=== PATIENT | male | born 1995 | race Caucasian/White ===

== ENCOUNTER 2016-09-26 13:37 | Inpatient (IN) | payer OTHER ==
[~2016-09-26] VITALS: Ht 175.3 cm; Wt 165.6 kg
[~2016-09-26 13:37] MED LIST: ETOMIDATE 2 MG/ML 20 ML VIAL IV ONE; ROCURONIUM BROMIDE 10 MG/ML 5 ML VIAL IV ONE; VECURONIUM BROMIDE 10 MG VIAL IV ONE
[2016-09-26] MEDS ORDERED: HALOPERIDOL LACTATE 5 MG/ML 1 ML VIAL ONE (13:41)
[2016-09-26] MEDS ORDERED: LORAZEPAM 2 MG/ML 1 ML VIAL ONE ×2 (13:41→15:05)
[2016-09-26] MEDS ORDERED: MIDAZOLAM HCL 5 MG/ML 1 ML VIAL IM STA (13:45)
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
[2016-09-26] MEDS ORDERED: MIDAZOLAM HCL 5 MG/ML 2ML VIAL ONE ×2 (14:02→15:53)
[2016-09-26] MEDS ORDERED: HALOPERIDOL LACTATE 5 MG/ML 1 ML VIAL IM STA (14:13)
[2016-09-26 14:37] LABS: BUN/CREATININE RATIO 10.5 (10-20); CALCIUM 8.4 mg/dl (8.5-10.1); CREATININE 0.99 mg/dl (0.60-1.40)
[2016-09-26] MEDS ORDERED: LORAZEPAM 2 MG/ML 1 ML VIAL IM STA (15:07)
--- NOTE | 2016-09-26 15:40 | DIAGNOSTIC IMAGING REPORT ---
CHEST ONE VIEW PORTABLE CLINICAL HISTORY: Hypoxia, intoxication. Vomiting. COMPARISON STUDY: No previous studies for comparison. FINDINGS: The heart is the upper limits of normal in size. There is no focal pulmonary consolidation. There is no pneumothorax. There are no pleural effusions. There is no failure. Mild increased markings are likely secondary to technical factors given the patient's body habitus.[ IMPRESSION: AP portable study. No active disease in the chest. Electronically signed by: Luke Winslow M.D. 09/26/2016 3:39 PM Dictated Date/Time: 09/26/2016 3:38 PM
[2016-09-26] MEDS ORDERED: MIDAZOLAM HCL 5 MG/ML 1 ML VIAL IV STA ×2 (15:45→17:01)
[2016-09-26] MEDS ORDERED: RAPID SEQUENCE INDUCTION BAG ONE (16:21)
[2016-09-26] MEDS ORDERED: PROPOFOL IV EMULSION 10 MG/ML 20 ML VIAL IV ONE (16:39)
[2016-09-26] MEDS ORDERED: PROPOFOL IV EMULSION 10 MG/ML 20 ML VIAL IV STA (16:40)
[2016-09-26] MEDS ORDERED: PROPOFOL IV EMULSION 10 MG/ML 100 ML VIAL IV PRN (16:45)
--- NOTE | 2016-09-26 16:51 | DIAGNOSTIC IMAGING REPORT ---
CHEST ONE VIEW PORTABLE CLINICAL HISTORY: Respiratory failure. Post intubation film. COMPARISON STUDY: 09/26/2016 FINDINGS: There is been interval placement of an endotracheal tube 5.3 cm above the raquel. Heart is mildly enlarged. There are increased perihilar markings. Is unclear whether these are atelectatic, inflammatory, or secondary to mild central pulmonary vascular congestion. Clinical and radiographic follow-up is recommended. IMPRESSION: Interval placement of an endotracheal tube 5.3 cm above the raquel. Electronically signed by: Luke Winslow M.D. 09/26/2016 4:49 PM Dictated Date/Time: 09/26/2016 4:47 PM
[2016-09-26] MEDS ORDERED: FENTANYL CITRATE INJ 50 MCG/1 ML 2 ML VIAL IV STA (17:01)
--- NOTE | 2016-09-26 17:03 | DIAGNOSTIC IMAGING REPORT ---
CT HEAD WITHOUT CONTRAST (CT) CLINICAL HISTORY: Head pain. Head and facial trauma. Intoxication. COMPARISON STUDY: No previous studies for comparison. TECHNIQUE: Axial CT of the brain is performed from the vertex to the skull base. IV contrast was not administered for this examination. CT DOSE: 1333.49 mGy.cm FINDINGS: No intra or extra-axial mass lesions are visualized. There is no CT evidence of acute cortical infarction. There is no evidence of midline shift. There is no acute hemorrhage. No calvarial fractures are visualized. The patient is intubated There is no evidence of pathologic ventricular dilatation. There is no evidence of acute sinusitis IMPRESSION: No acute intracranial findings. Electronically signed by: Luke Winslow M.D. 09/26/2016 5:02 PM Dictated Date/Time: 09/26/2016 5:01 PM
--- NOTE | 2016-09-26 17:06 | DIAGNOSTIC IMAGING REPORT ---
CT FACIAL BONES-MXILLOFAC WITHOUT CT DOSE: CLINICAL HISTORY: Facial pain status post trauma COMPARISON STUDY: No previous studies for comparison. TECHNIQUE: Helical images were acquired in the transverse plane. The study was reviewed and analyzed on the independent 3-D workstation. The pterygoid plates appear intact. The zygomatic arches appear intact. The globes appear intact. There is no evidence of orbital emphysema. The orbital english and floor appear intact. The mandibular condyles appear intact. The patient is intubated. IMPRESSION: No facial fractures identified. Electronically signed by: Luke Winslow M.D. 09/26/2016 5:05 PM Dictated Date/Time: 09/26/2016 5:02 PM
[2016-09-26 17:11] LABS: HEMATOCRIT 41.5 % (42-52); MEAN CELL VOLUME 86.3 fL (80-100); MEAN CORPUSCULAR HEMOGLOBIN 30.4 pg (25-34); MEAN CORPUSCULAR HGB CONC 35.2 g/dl (32-36); MEAN PLATELET VOLUME 9.9 fL (7.4-10.4); PLATELET COUNT 300 K/uL (130-400); RED BLOOD COUNT 4.81 M/uL (4.7-6.1); WHITE BLOOD COUNT 6.81 K/uL (4.8-10.8)
[2016-09-26] MEDS ORDERED: ALUMINUM/MAGNESIUM/SIMETH (MAALOX MAX) 30 ML UDC PO PRN (17:45)
[2016-09-26] MEDS ORDERED: MAGNESIUM HYDROXIDE SUSP 30 ML UDC PO PRN (17:45)
[2016-09-26] MEDS ORDERED: ONDANSETRON INJ 2 MG/ML 2 ML VIAL IV PRN (17:45)
--- NOTE | 2016-09-26 17:47 | History and Physical ---
History & Physical Date & Time of Service: Sep 26, 2016 at 17:47 Chief Complaint: Alcohol Overdose Primary Care Physician: Social History Smoking Status: Unknown if Ever Smoked Occupational Status: student Home Medications Unable to Obtain Active Prescriptions or Reported Meds Physical Exam Vital Signs Date Time Temp Pulse Resp B/P Pulse Ox O2 Delivery O2 Flow Rate FiO2 09/26/16 16:55 50 09/26/16 16:35 97 09/26/16 16:35 96 Mechanical Ventilator 09/26/16 14:59 90 14 137/58 95 09/26/16 14:45 151/56 09/26/16 14:37 90 14 95 09/26/16 14:35 83 Room Air 09/26/16 14:35 20 91 Nasal Cannula 6.0 09/26/16 14:07 90 12 91 09/26/16 13:57 141/86 09/26/16 13:56 98 18 141/86 92 Room Air 09/26/16 13:55 97 Diagnostics Laboratory Results Results Past 24 Hours Test 09/26/16 14:08 09/26/16 15:45 09/26/16 17:45 Range/Units Sodium Level 142 136-145 mmol/L Potassium Level 3.0 3.5-5.1 mmol/L Chloride Level 104 98-107 mmol/L Carbon Dioxide Level 20 21-32 mmol/L Anion Gap 18.0 3-11 mmol/L Blood Urea Nitrogen 10 7-18 mg/dl Creatinine 0.99 0.60-1.40 mg/dl Est Creatinine Clear Calc Drug Dose 200.4 ml/min Estimated GFR () 126.5 Estimated GFR (Non- 109.2 BUN/Creatinine Ratio 10.5 10-20 Random Glucose 164 70-99 mg/dl Calcium Level 8.4 8.5-10.1 mg/dl Ethyl Alcohol mg/dL 272.0 0-3 mg/dl White Blood Count 6.81 4.8-10.8 K/uL Red Blood Count 4.81 4.7-6.1 M/uL Hemoglobin 14.6 14.0-18.0 g/dL Hematocrit 41.5 42-52 % Mean Corpuscular Volume 86.3 80-100 fL Mean Corpuscular Hemoglobin 30.4 25-34 pg Mean Corpuscular Hemoglobin Concent 35.2 32-36 g/dl RDW Standard Deviation 41.5 36.4-46.3 fL RDW Coefficient of Variation 13.2 11.5-14.5 % Platelet Count 300 130-400 K/uL Mean Platelet Volume 9.9 7.4-10.4 fL Total Creatine Kinase 1936 39-308 U/L Impression Assessment and Plan admit #[id number] VTE Prophylaxis VTE Risk Assessment Done? Y/N: Yes Risk Level: Moderate
[2016-09-26] MEDS ORDERED: SODIUM CHLORIDE 0.9% 1000ML 1,000 ML IV SCH (18:15)
[2016-09-26] MEDS ORDERED: SODIUM CHLOR 0.45% + 20MEQ KCL 1,000 ML IV SCH (18:15)
[2016-09-26] MEDS ORDERED: MIDAZOLAM HCL 1 MG/ML 2ML VIAL IV PRN (18:30)
[2016-09-26] MEDS ORDERED: HALOPERIDOL LACTATE 5 MG/ML 1 ML VIAL IV PRN (18:30)
--- NOTE | 2016-09-26 18:34 | HISTORY & PHYSICAL EXAMINATION ---
DATE OF ADMISSION: 09/26/2016 ADMISSION HISTORY AND PHYSICAL CHIEF COMPLAINT: Intubated. HISTORY OF PRESENT ILLNESS: History is completely unobtainable from the patient. There are no old or outside records available for review. There are no friends, witnesses or family and the patient is intubated and sedated by the time of my arrival. So the history is only obtainable via the ER and even then it was extremely limited because of the degree of the patient's intoxication. He apparently was drinking, was punching himself in the face was vomiting, apparently was combative with police and came to the ER, they were trying to evaluate and assess and he was very combative and there was concern on facial trauma. He was given a degree of sedation to be able to evaluate further with CAT scan, the facial trauma. He was combative, awake and screaming and then briefly was unresponsive and hypoxic, then he was awake and apparently agitated again and eventually between his degree of agitation and waxing and waning mental status, the decision was made to intubate to protect his airway. We have been asked to admit and the case has been discussed with Dr. Hoskins in the ICU. REVIEW OF SYSTEMS AND HISTORY OF PRESENT ILLNESS: From the patient is unobtainable and reportedly police apparently confiscated some Xanax that was found on him, again told to me by the ER physician. PAST MEDICAL HISTORY: Uncertain. MEDICATIONS: Uncertain. PAST SURGICAL HISTORY: Uncertain. FAMILY HISTORY: Uncertain. SOCIAL HISTORY: Obviously used alcohol today. He is apparently a [employer] student. ALLERGIES: Uncertain. PHYSICAL EXAMINATION: VITAL SIGNS: His initial vitals showed a pulse of 97, respiratory rate 18, blood pressure 141/86, 92% on room air. GENERAL: He is sedated and intubated, but in no acute distress at this point in time. HEENT: Normocephalic. He does have a bloody nose. ET tube appears to be in place without any breakdown. There is no other obvious facial trauma. NECK: Appears intact. CARDIOVASCULAR: Regular. Somewhat distant. No rubs, murmurs, or gallops. LUNGS: Clear, distant. No rales, rhonchi, or wheezes. No accessory muscle use. ABDOMEN: Soft, nondistended, nontender. No notable guarding, rebound or rigidity, masses or organomegaly. EXTREMITIES: Without cyanosis, clubbing or edema. No calf tenderness. SKIN: Shows no rashes, no pallor or icterus, no other areas of breakdown, bruising or scrapes. NEUROLOGIC: Full neuro exam obviously is impossible at this time given is intubated and sedated state, but he shows no focal deficits or asymmetry at rest. MENTAL STATE: He is sedated this is not able to be assessed. MUSCULOSKELETAL: Because of his size, intubation and positioning, full exam is difficult, but no obvious lesions are noted. LABORATORIES AND DIAGNOSTICS: CBC shows a white count of 6.81, hemoglobin 14.6, platelets 300. Basic metabolic panel with sodium 142, potassium 3, chloride 100, CO2 20, BUN 10, creatinine 0.99. Calcium 8.4, glucose 164. CK total of 1936, alcohol of 272. His initial chest x-ray showed heart upper limits and normal in size. No consolidation, no pneumothorax, no pleural effusion, no failure; mild increase in lung markings likely secondary to technical factors given patient's body habitus. A follow up chest x-ray post-intubation showing increased perihilar markings, atelectasis inflammation or mild central pulmonary congestion was at the conclusion; this was reviewed by me it did seem consistent with above. Head CT showed no acute findings and maxillofacial CT showed no facial fractures. ASSESSMENT AND PLAN: 1. Airway compromise. He has now been intubated. He is sedated. We will be admitting him to the ICU. Hopefully, quickly he will be able to be extubated as his intoxication wears off. 2. Intoxication, his blood alcohol is 272, which certainly could be high enough to explain some of his findings, but it is also not overwhelmingly high and given this combined with the fact that he had Xanax found on his person, concerns for an underlying potential polysubstance overdose. Will check an EKG, a urine drug screen and acetaminophen level to round out the picture and then follow up on the results accordingly. 3. Questionable pulmonary edema. I suspect this is probably vasodilation from the medications he was given, will simply follow. Obviously, if it persists, we will need to evaluate further from a cardiac standpoint. 4. Hypokalemia, replete, this probably down from alcohol. 5. Mild metabolic acidosis. Follow basic metabolic panel in the morning. 6. Hypocalcemia. Check a vitamin D. 7. Elevated CK total. This is probably from his size, muscle mass, and just general recent mobility with agitation. Will follow up a level in several hours to ensure it is not rising, it is some sort of surprise rhabdomyolysis that it would not expect. 8. Deep venous thrombosis prophylaxis. Lovenox. Please note due to HIPPA, the patient being an adult and having no clear cut family contacts, I was unable to ethically or legally reach out to anyone at this point in time. MTDD
[2016-09-26 18:46] LABS: MAGNESIUM 2.4 mg/dl (1.8-2.4); PHOSPHORUS 3.4 mg/dl (2.5-4.9)
[2016-09-26] MEDS ORDERED: POTASSIUM CHLORIDE 20 MEQ/15 ML UDC PO SCH (18:50)
[2016-09-26] MEDS ORDERED: POTASSIUM CHLR 10 MEQ / WTR 10 MEQ in PREMIXED WATER 100 ML IV SCH (19:00)
[2016-09-26] MEDS: PROPOFOL IV EMULSION 10 MG/ML 100 ML VIAL IV PRN ×3 (19:10→23:21)
[2016-09-26 19:28] LABS: ISTAT ALLEN TEST Pass; ISTAT ARTERIAL BLOOD GAS HCO3 21 meq/L (19-24); ISTAT ARTERIAL BLOOD GAS PCO2 49 mmHg (35-46); ISTAT ARTERIAL BLOOD GAS PO2 153 mmHg (80-95); ISTAT ARTERIAL BLOOD GAS pH 7.24 (7.35-7.45); ISTAT CARBON DIOXIDE 22 mEq/l (24-31); ISTAT DELIVERY SYSTEM Ventilator; ISTAT FIO2 50 %; ISTAT PEEP 5; ISTAT RATE 16; ISTAT SITE R Radial; VE 10.8; Vt 600
[2016-09-26 19:35] LABS: BENZODIAZEPINE, URINE POS (NEG); COCAINE,URINE POS (NEG); PHENCYCLIDINE, URINE NEG (NEG)
--- NOTE | 2016-09-26 19:47 | CRITICAL CARE CONSULTATION ---
DATE OF CONSULTATION: 09/26/2016 CHIEF COMPLAINT: Alcohol overdose. HISTORY OF PRESENT ILLNESS: Mr. Patterson is a 21-year-old man, who presented to the Emergency Department either via police or ambulance presumably secondary to alcohol intoxication. Per the Emergency Department notes, the police told them he punched himself in the face prior to arrival and had been vomiting. In the Emergency Department, he was combative and received 10 mg of IM Haldol and 2 mg of IM Ativan prior to getting 5 mg of IM Versed. He was still combative and received Haldol 10 mg IM and then another 2 mg IM. He was put into four-point restraints and started to become hypoxemic on room air. He also received 5 mg of IV Versed and eventually required intubation, more Ativan, propofol and fentanyl. At some point during his stay in the Emergency Department, he had a head CT and a maxillofacial CT which showed no fractures or acute process. He is now admitted to the intensive care unit for further care. History is severely limited as there are no family members or friends with him. I do not find any old records on him in the computer. PAST MEDICAL HISTORY: Unknown. PAST SURGICAL HISTORY: Unknown. ALLERGIES: Unknown. OUTPATIENT MEDICATIONS: Unknown. SOCIAL HISTORY: He drinks alcohol. Otherwise unknown. FAMILY HISTORY: Unknown. REVIEW OF SYSTEMS: Not obtainable. PHYSICAL EXAMINATION: GENERAL: This is an obese young man, who weighs 167 kilograms and who is sedated on propofol. VITAL SIGNS: Temperature 36.9, heart rate 87, respiratory rate 16, blood pressure 160-180/70s, oxygen saturation 100%, ventilator settings assist control, tidal volume 600, rate of 16, FiO2 50% and PEEP 5. HEENT: Pupils are equally round and reactive to light. The conjunctivae are injected bilaterally. Oral examination is deferred due to the endotracheal tube being in place. NECK Large. No obvious adenopathy. Trachea midline. LUNGS: Clear to auscultation with very decreased breath sounds in the left base. No rhonchi or wheezes. No rales. HEART: Regular rate and rhythm, distant. ABDOMEN: Obese, soft, nondistended, hypoactive bowel sounds. EXTREMITIES: Warm. No edema. Radial and dorsalis pedis pulses 2+. He has calluses on his feet. NEUROLOGIC: He is unresponsive to sternal rub. LABORATORY DATA: Sodium 142, potassium 3, chloride 104, CO2 20, BUN 10, creatinine 0.99, blood sugar 164, calcium 8.4, total CPK 1936, phosphorus 3.4, magnesium 2.4, hydroxyvitamin D level 6.5, white blood cell count 6.81, hemoglobin 14.6, hematocrit 41.5, platelets 300, acetaminophen level less than 2 and alcohol level 272. Urine tox screen is pending. Portable chest x-ray status post intubation was reviewed and shows the endotracheal tube to be approximately 5 cm above the raquel. No acute infiltrate. CT head and face reports were reviewed; no acute process. IMPRESSION: 1. Acute alcohol intoxication. 2. Agitated delirium secondary to #1. 3. Hypokalemia. 4. Vitamin D deficiency. 5. Morbid obesity with a BMI of 44.9. 6. Mildly elevated CPK. 7. Hypertension PLAN: 1. Sedate and maintain on the ventilator with aggressive hydration overnight until he is no longer intoxicated. 2. Replete potassium. I have ordered potassium liquid in lieu of IV runs. Recheck potassium level later tonight. 3. Follow the CPK. 4. A High catheter and NG tube have been placed. 5. Sedate with propofol, give p.r.n. Ativan and fentanyl if needed. If he becomes extremely agitated, he has some Versed if needed. 6. Check an EKG to rule out prolonged QTc. Consider Haldol if appropriate, based on his QTc. 7. There is reportedly no contact information for this patient other than a telephone number, but who that telephone number belongs to is unknown. It is unclear to me where his telephone number even came from. Hopefully, someone from [facility] can help us find family. 8. Provide DVT prophylaxis with Lovenox. 9. Follow up ABG and adjust the ventilator accordingly. Critical care time; 60 minutes. CASH
[2016-09-26] MEDS: SODIUM CHLORIDE 0.9% 1000ML 1,000 ML IV SCH (19:48)
[2016-09-26 20:26] LABS: PROTHROMBIN TIME (PATIENT) 10.8 SECONDS (9.0-12.0)
[2016-09-26 20:38] VITALS: BP 119/63; PULSE 76; TEMP 36.5; O2SAT 100; Ht 175.3 cm; Wt 165.6 kg
[2016-09-26 21:00] VITALS: BP 158/76; PULSE 78; O2SAT 100
[2016-09-26 21:10] VITALS: BP 128/62; PULSE 80; O2SAT 100
[2016-09-26] MEDS: CHLORHEXIDINE GLUCONATE 0.12% 480 ML MT SCH (21:10)
[2016-09-26] MEDS: FENTANYL CITRATE INJ 50 MCG/1 ML 2 ML VIAL IV PRN (21:10)
[2016-09-26] MEDS ORDERED: ENOXAPARIN 40 MG/0.4 ML SYR SQ SCH (21:32)
[2016-09-26 22:00] VITALS: BP 125/57; PULSE 81; O2SAT 100
[2016-09-26 23:01] VITALS: BP 144/85; PULSE 84; O2SAT 100
[2016-09-26] MEDS: PATIENT'S ALLERGY INFO NEEDS ENTERED SCH (23:21)
[2016-09-26 23:23] LABS: BLOOD UREA NITROGEN 8 mg/dl (7-18); BUN/CREATININE RATIO 11.7 (10-20); CALCIUM 7.6 mg/dl (8.5-10.1); CARBON DIOXIDE 23 mmol/L (21-32); CHLORIDE 110 mmol/L (98-107); CREATININE 0.65 mg/dl (0.60-1.40); GLUCOSE 91 mg/dl (70-99); POTASSIUM 3.8 mmol/L (3.5-5.1); SODIUM 143 mmol/L (136-145)
[2016-09-27] VITALS (13 sets, daily range): BP systolic 120–168; BP diastolic 62–95; PULSE 94–123; TEMP 36.9–37.9; O2SAT 95–100
[2016-09-27] MEDS: FENTANYL CITRATE INJ 50 MCG/1 ML 2 ML VIAL IV PRN ×3 (00:32→05:09)
[2016-09-27] MEDS: PROPOFOL IV EMULSION 10 MG/ML 100 ML VIAL IV PRN ×5 (01:25→09:07)
[2016-09-27] MEDS: LORAZEPAM 2 MG/ML 1 ML VIAL IV PRN ×3 (01:50→07:12)
[2016-09-27] MEDS: SODIUM CHLORIDE 0.9% 1000ML 1,000 ML IV SCH ×2 (02:38→07:12)
[2016-09-27 06:37] LABS: BUN/CREATININE RATIO 9.3 (10-20); MAGNESIUM 1.8 mg/dl (1.8-2.4); POTASSIUM 3.6 mmol/L (3.5-5.1)
[2016-09-27 06:50] LABS: PHOSPHORUS 3.5 mg/dl (2.5-4.9)
[2016-09-27] MEDS: CHLORHEXIDINE GLUCONATE 0.12% 480 ML MT SCH (07:56)
[2016-09-27] MEDS: PATIENT'S ALLERGY INFO NEEDS ENTERED SCH (07:56)
--- NOTE | 2016-09-27 07:56 | DIAGNOSTIC IMAGING REPORT ---
CHEST ONE VIEW PORTABLE HISTORY: check ETT placement, resp failure COMPARISON: Chest 09/26/2016. FINDINGS: The endotracheal tube terminates 4.3 cm from the raquel. Nasogastric tube terminates below the diaphragm. The tip is not included on this study. Scattered bilateral airspace opacities have significantly improved. The heart is top normal in size. No pleural effusions. No pneumothorax. Mild central pulmonary vascular congestion without overt edema. IMPRESSION: 1. Satisfactory support line placement. 2. Interval improvement in the bilateral airspace opacities. Electronically signed by: Benigno Ayala M.D. 09/27/2016 7:55 AM Dictated Date/Time: 09/27/2016 7:53 AM
[2016-09-27] MEDS ORDERED: CHOLECALCIFEROL 1000 INTER.UNIT TAB PO SCH (09:00)
[2016-09-27] MEDS: POTASSIUM CHLR 10 MEQ / WTR 10 MEQ in PREMIXED WATER 100 ML IV SCH ×4 (09:02→12:23)
[2016-09-27] MEDS ORDERED: SODIUM CHLORIDE 0.9% 1000ML 1,000 ML IV SCH (10:00)
[2016-09-27] MEDS ORDERED: LORAZEPAM 2 MG/ML 1 ML VIAL IV PRN (10:15)
[2016-09-27] MEDS ORDERED: PANTOprazole INJ 40 MG in SYRINGE 0 ML IV SCH (11:00)
[2016-09-27] MEDS ORDERED: SODIUM CHLORIDE 0.45% 1000ML 1,000 ML IV SCH (11:45)
[2016-09-27] MEDS ORDERED: ALBUTEROL 0.083% NEBU SOLN 3 ML VIAL INH SCH (12:00)
[2016-09-27] MEDS ORDERED: ALBUTEROL 0.083% NEBU SOLN 3 ML VIAL INH PRN (12:00)
--- NOTE | 2016-09-27 12:01 | CRITICAL CARE PROGRESS NOTE ---
DATE: 09/27/2016 SUBJECTIVE: This is a 21-year-old young man who was admitted to the intensive care unit last evening after presenting to the Emergency Department with alcohol intoxication and combative behavior. He required multiple bolus doses of sedatives and eventually was intubated in order to obtain CT of the head and face as well as to protect staff and the patient from harm. There were no acute events overnight. His urine toxicology screen resulted positive for cocaine and marijuana. I saw him this morning after his propofol had been stopped. He was on CPAP 5/5 and under my direction and in my presence, he was extubated. He is demanding and impatient. He denies any pain and was very irritated with having a High catheter. He tells me that he has a history of asthma and uses his rescue inhaler daily. He also may have sleep apnea, but he does not use a CPAP machine and cannot tell me if he has had a sleep study. HE IS ALLERGIC TO ACETAMINOPHEN, which he says causes him to "swell up." His care was discussed with his nurse, Ngozi. PHYSICAL EXAMINATION: VITAL SIGNS: Maximum temperature 37.7, heart rate 84-111, respiratory rate 22-27, blood pressure 127-158/60s-90s, and oxygen saturation 98% on 2 liters nasal cannula. NEUROLOGIC: He is awake, alert, and moves all 4 extremities to command. LUNGS: Distant and decreased breath sounds throughout. NECK: No stridor. HEART: Distant, tachycardic and regular. ABDOMEN: Morbidly obese, firm, and nontender. EXTREMITIES: Large, warm. Adequate capillary refill. LABORATORY DATA: Sodium 143, potassium 3.6, chloride 110, CO2 of 26, BUN 9, and creatinine 1. CPK 1794, magnesium 1.8, and phosphorus 3.5. CBC pending. Portable chest x-ray from this morning was reviewed and shows improvement in the bibasilar atelectasis. MEDICATIONS: Maalox, albuterol, vitamin D, Lovenox, fentanyl, Haldol, Ativan, milk of magnesia, Versed, Protonix, potassium, and normal saline at 150 mL per hour. IMPRESSION: 1. Acute alcohol intoxication. 2. Delirium with agitation secondary to #1, resolved. 3. History of asthma. 4. Vitamin D deficiency. 5. Morbid obesity. 6. Hypokalemia. 7. Mild rhabdomyolysis. 8. Urine toxicology screen positive for marijuana and cocaine. 9. Alcohol and drug abuse. 10. Hypertension 11. History of ADHD PLAN: 1. Change IV fluids to 1/2NS 100ml/hr and check CPK later today. 2. Replete electrolytes. 3. Advance diet. 4. I will try to find out how much alcohol he actually drinks and if he is at risk for alcohol withdrawal. 5. I added Protonix to his medications secondary to an NG output of 500 mL last evening. This can be discontinued now if he is extubated. 6. Continue DVT prophylaxis with Lovenox. 7. Labetalol IV for hypertension. Consider scheduled lopressor 8. Change fluids to half normal saline. 9. Scheduled albuterol nebulizers. Critical care time 40 minutes. CASH
[2016-09-27] MEDS ORDERED: LABETALOL HCL IV 5 MG/ML 20ML IV STA (12:12)
[2016-09-27 12:14] LABS: ISTAT ALLEN TEST Pass; ISTAT ARTERIAL BLOOD GAS HCO3 22 meq/L (19-24); ISTAT ARTERIAL BLOOD GAS PCO2 36 mmHg (35-46); ISTAT ARTERIAL BLOOD GAS PO2 63 mmHg (80-95); ISTAT CARBON DIOXIDE 23 mEq/l (24-31); ISTAT DELIVERY SYSTEM Room Air; ISTAT SITE R Radial
[2016-09-27] MEDS ORDERED: METHYLPREDNISOLONE IV 40 MG in SYRINGE 0 ML IV SCH (13:00)
[2016-09-27] MEDS ORDERED: METHYLPREDNISOLONE IV 40 MG in SYRINGE 0 ML IV ONE (13:00)
[2016-09-27] MEDS ORDERED: ALBUT/IPRATROP 3MG/0.5MG NEB 3 ML VIAL INH SCH (15:00)
--- NOTE | 2016-09-27 15:18 | Discharge Instructions ---
Discharge Instructions Admission Reason for Admission: Alcohol Intoxication, Combative Behavior Discharge Discharge Diagnosis / Problem: Anxiety, Hypertension, Tachycardia, recent alcohol intoxication Discharge Goals Goal(s): Decrease discomfort, Improve function Activity Recommendations Activity Limitations: resume your previous activity Lifting Limitations: none Exercise/Sports Limitations: as tolerated May Resume Sexual Activity: when tolerated Shower/Bathe: no limitations Driving or Machine Use: do not drive if you are drinking alcohol or using Xanax or cocaine . Instructions / Follow-Up Instructions / Follow-Up You have been informed that it is my medical advise that you stay in the hospital for further care over night. You have elected to leave against medical advise. You understand that you could get worse and even potentially without medical intervention. Current Hospital Diet Patient's current hospital diet: Regular Diet Discharge Diet Recommended Diet: Regular Diet Pending Studies Studies pending at discharge: no Medical Emergencies . Who to Call and When: Medical Emergencies: If at any time you feel your situation is an emergency, please call 911 immediately. . Non-Emergent Contact Non-Emergency issues call your: Primary Care Provider ([facility]) . . "Provider Documentation" section prepared by Pete Garcia. VTE Core Measure Inpt VTE Proph given/why not?: Enoxaparin (Lovenox) [place] Drug Monitoring Program Search Results: no issues identified
--- NOTE | 2016-09-27 15:57 | Discharge Summary ---
Discharge Summary Date of Service Sep 27, 2016. Discharge Summary Admission Date: Sep 26, 2016 at 17:39 Discharge Date: Sep 27, 2016 Discharge Disposition: Home Principal Diagnosis: Acute Alcohol Intoxication Problems/Secondary Diagnoses: Acute Delirium Medication Reconciliation Medication Profile: Unable to Obtain Active Prescriptions or Reported Meds Discharge Exam Review of Systems: Constitutional: No chills, No fever Respiratory: No cough, No shortness of breath, No sputum Cardiovascular: No chest pain Abdomen: No diarrhea, No nausea, No pain, No vomiting Neurologic: No memory loss, No weakness Endocrine: No fatigue Physical Exam: General Appearance: no apparent distress, + obese Eyes: normal inspection, PERRL, EOMI, sclerae normal Neck: supple Respiratory/Chest: chest non-tender, no respiratory distress, + decreased breath sounds Cardiovascular: regular rate, rhythm, no edema, no JVD, no murmur Abdomen / GI: normal bowel sounds, non tender, soft Neurologic/Psychiatric: alert, normal mood/affect, oriented x 3 Hospital Course Patient is a 21 year old male that presented to the ED yesterday brought in by police after being found intoxicated, punching himself in the face, combative, and vomiting. A bottle of Xanax was found on his person and confiscated by police. In the ED the patient was combative and had a blood alcohol level of 272. Due to his aggressive and combative behavior the patient was given Haldol 10mg, Ativan 2mg, and Versed IM 5mg and subsequently intubated. The patient has a head CT due to facial trauma and that showed no acute fractures. The patient was taken to the ED and was sedated with a vent whiled on Versed, Ativan, Propofol, and Fentanyl. He received IV fluids with KCl due to dehydration and hypokalemia. The patient also had an elevated CPK possibly 2/2 to his large stature. The patient had a molina and NG tube placed as well. No acute events occurred overnight. Tox screen came back positive for cocaine and marijuana. Patient was extubated successfully this morning and afterwards was saturating well on room air. Patient was very demanding and was upset about having a Molina Catheter stating he has "had one before and didn't do well with it". After further questioning the patient states he has had an admission before for intoxication as a senior in high school, but did not provide further details. He denies taking Ativan or Cocaine last night, but says he had "half a handle" of vodka with 8 beers as well as marijuana. We were continuing with maintenance fluids and supportive care when the patient demanded on leaving AMA. The patient is determined to be competent at this time and will be discharged AMA Total Time Spent: Greater than 30 minutes This includes examination of the patient, discharge planning, medication reconciliation, and communication with other providers. Discharge Instructions Please refer to the electronic Patient Visit Report (Discharge Instructions) for additional information.
[2016-10-01 00:30] LABS: COCAINE, URINE 6110 NG/ML (CUTOFF=100); HYDROXYETHYLFLURAZEPAM CONF NEGATIVE NG/ML (CUTOFF=50); HYDROXYMIDAZOLAM 1970 NG/ML (CUTOFF=50); HYDROXYTRIAZOLAM CONF NEGATIVE NG/ML (CUTOFF=50); TEMAZEPAM CONF NEGATIVE NG/ML (CUTOFF=50)
== END 2016-09-27 15:30 | disposition left against medical advice (07) | DRG 894 ==
LOC: ENRESERVDT → ENRESERVTM → C.EDA 13:39 → C.MSICU 17:39
PROVIDERS: ADMIT Family Medicine; ATTEND Internal Medicine
PROC: 0BH17EZ Insertion of Endotracheal Airway into Trachea, Via Natural or Artificial Opening (ICD-10-PCS; principal; 2016-09-26)
PROC: 5A1935Z Respiratory Ventilation, Less than 24 Consecutive Hours (ICD-10-PCS; principal; 2016-09-26)
DX: F10.121 Alcohol abuse with intoxication delirium (principal); E87.2 Acidosis; Z68.41 Body mass index [BMI] 40.0-44.9, adult; M62.82 Rhabdomyolysis; Y90.8 Blood alcohol level of 240 mg/100 ml or more; F14.121 Cocaine abuse with intoxication with delirium; F13.121 Sedative, hypnotic or anxiolytic abuse with intoxication delirium; J98.8 Other specified respiratory disorders; J70.2 Acute drug-induced interstitial lung disorders; T50.905A Adverse effect of unspecified drugs, medicaments and biological substances, initial encounter; Y92.239 Unspecified place in hospital as the place of occurrence of the external cause; R04.0 Epistaxis; S09.93XA Unspecified injury of face, initial encounter; X83.8XXA Intentional self-harm by other specified means, initial encounter; R45.6 Violent behavior; R09.02 Hypoxemia; E86.0 Dehydration; F12.90 Cannabis use, unspecified, uncomplicated; R11.11 Vomiting without nausea; E83.51 Hypocalcemia; E87.6 Hypokalemia; R06.82 Tachypnea, not elsewhere classified; R00.0 Tachycardia, unspecified; F41.9 Anxiety disorder, unspecified; I10 Essential (primary) hypertension; E55.9 Vitamin D deficiency, unspecified; J45.909 Unspecified asthma, uncomplicated; E66.01 Morbid (severe) obesity due to excess calories; Z53.21 Procedure and treatment not carried out due to patient leaving prior to being seen by health care provider; Z78.1 Physical restraint status

== ENCOUNTER 2016-11-30 04:59 | Emergency (ER) | payer OTHER ==
[~2016-11-30] VITALS: Ht 193 cm; Wt 157.0 kg
[2016-11-30 05:04] VITALS: TEMP 36.7; Ht 193 cm; Wt 157.0 kg
[2016-11-30] MEDS ORDERED: IBUPROFEN 600 MG TAB PO STA (05:23)
[2016-11-30] MEDS ORDERED: ACETAMINOPHEN 500 MG TAB PO STA (05:23)
[2016-11-30 05:39] VITALS: BP 145/88; PULSE 110; O2SAT 98
--- NOTE | 2016-11-30 06:21 | EMERGENCY ROOM VISIT NOTE ---
ED Visit Note First contact with patient: 05:10 CHIEF COMPLAINT: Ankle pain HISTORY OF PRESENT ILLNESS: This 21 old male patient presents to the emergency department after sustaining an injury to the right ankle and foot with a twisting, inversion motion after falling 6 hours ago. The patient complains of pain along the outside of the ankle. The patient is without pain of the foot. The patient rates the pain as dull and 7/10. The patient is not comfortably able to bear weight on the foot. Constant pain, worse with movement, weight bearing, and the dependent position. No knee pain, the patient is able to move their toes. No numbness or weakness of the foot, no laceration. The patient has not had a previous fracture to this ankle. The patient has taken nothing for the pain. The patient denies any other injury. REVIEW OF SYSTEMS: A 6 system review of systems was completed with positives and pertinent negatives listed in the HPI. ALLERGIES: Penicillin MEDICATIONS: No chronic medication PMH: Otherwise healthy SOCIAL HISTORY: Student who lives locally PHYSICAL EXAM: Vital Signs: Reviewed Nurse's notes, vital signs stable. GENERAL : White male, no acute distress, but appears in pain, well-developed, well- nourished. MENTAL STATUS: Alert, oriented to person place and time, and cooperative. MUSCULOSKELETAL: The right ankle is swollen and tender over the lateral malleolus, but the skin is intact and there is no ligamentous instability. There is no fifth metatarsal tenderness. There is no tenderness over the rest of the foot. There is no calf or tibia/fibular tenderness. There is no visual deformity. The foot and toes are warm and well-perfused. Dorsalis pedis pulse 2+. Sensation to pain and light touch is intact. Capillary refill less than 2 seconds. EMERGENCY DEPARTMENT COURSE: Physical exam and history were performed. Nursing notes and EMR were reviewed. The patient appears to have suffered injury to his right ankle after an inversion injury last night. X-rays were obtained and do not show evidence of acute fracture or dislocation. The patient was placed in a gel ankle splint and provided crutches. He was given information to follow with orthopedics and admitted to the ER with any new, worsening, or concerning symptoms. Current/Historical Medications No Active Prescriptions or Reported Meds Allergies Coded Allergies: Penicillin G (Verified Allergy, Unknown, A CHILD, 11/30/16) Vital Signs Date Time Temp Pulse Resp B/P Pulse Ox O2 Delivery O2 Flow Rate FiO2 11/30/16 05:39 110 20 145/88 98 Room Air 11/30/16 05:04 36.7 77 20 169/84 99 Room Air Medications Administered Medications (Trade) Dose Ordered Sig/Kvng Route Start Time Stop Time Status Last Admin Dose Admin Acetaminophen (Tylenol Tab) 1,000 mg NOW STAT PO 11/30/16 05:23 11/30/16 05:25 DC 11/30/16 05:23 1,000 MG Ibuprofen (Motrin Tab) 600 mg NOW STAT PO 11/30/16 05:23 11/30/16 05:25 DC 11/30/16 05:32 600 MG Departure Information Impression Primary Impression: Injury of right ankle Dispostion Home / Self-Care Condition GOOD Prescriptions No Active Prescriptions or Reported Meds Referrals No Doctor, Assigned Smooth Almonte, DO [facility] (PCP) Forms HOME CARE DOCUMENTATION FORM, IMPORTANT VISIT INFORMATION Patient Instructions My [facility], ED RICE Additional Instructions You were seen and evaluated today on an emergency basis only. This is not a substitute for, or an effort to provide, complete comprehensive medical care. It is not possible to recognize and treat all injuries or illnesses in a single emergency department visit. For this reason it is recommended that you followup with Orthopedics, Dr. Almonte's office, for ongoing care and evaluation. For baseline pain relief you may alternate ibuprofen and acetaminophen every 4 hours for pain control. Take 600 mg ibuprofen (Advil) and then 4 hours later take 1000 mg acetaminophen (Tylenol). Do not take more than 3000 mg acetaminophen in a single day. Use your gel ankle splint and crutches for the next 4-5 days and slowly advance activity as tolerated. You are welcome to return to the emergency department anytime with new, worsening, or concerning symptoms.
--- NOTE | 2016-11-30 06:56 | DIAGNOSTIC IMAGING REPORT ---
RIGHT ANKLE MIN 3 VIEWS ROUTINE CLINICAL HISTORY: x-ray right ankle Right trauma. Pain. COMPARISON: None. DISCUSSION: The bones and joint spaces appear intact. There is no evidence of fracture, dislocation or bony disease. Moderate generalized soft tissue edema. Small heel spur. IMPRESSION: Soft tissue edema. Small heel spur. No acute bony abnormality. Electronically signed by: Gelacio Romano M.D. 11/30/2016 6:55 AM Dictated Date/Time: 11/30/2016 6:54 AM
== END 2016-11-30 05:41 | disposition home or self-care (01) ==
LOC: C.EDB 05:00 → C.EDA 05:41
DX: S99.911A Unspecified injury of right ankle, initial encounter (principal); X50.0XXA Overexertion from strenuous movement or load, initial encounter